=== PATIENT | male | born 1980 | race African-American/Black ===

== ENCOUNTER 2016-07-07 22:29 | Emergency (ER) | payer SELFPAY ==
[~2016-07-07] VITALS: Ht 185.4 cm; Wt 86.2 kg
[2016-07-07 22:36] VITALS: BP 146/98
[2016-07-07] MEDS ORDERED: TRAM-29 PO (23:54)
--- NOTE | 2016-07-07 23:54 | PHYS DOC ---
Past Medical History Past Medical History: Hypertension Past Surgical History: Other Additional Past Surgical Histo: R. knee Alcohol Use: None Drug Use: None Adult General Chief Complaint Chief Complaint: ANKLE PROBLEM HPI HPI Patient is a 35 year old male with history of pain related complaints typically musculoskeletal who presents to the ED today with mild right ankle pain worse on the Achilles tendon pain that began today after he jumped over a fence and a couple steps landing on his foot and hyperflexing the ankle. Review of Systems Review of Systems Constitutional: Denies fever or chills [] Eyes: Denies change in visual acuity, redness, or eye pain [] Musculoskeletal: Right ankle/Achilles pain. Integument: Denies rash or skin lesions [] Neurologic: Denies headache, focal weakness or sensory changes [] Endocrine: Denies polyuria or polydipsia [] Allergies Allergies Allergies Coded Allergies Type Severity Reaction Last Updated Verified No Known Drug Allergies 07/07/16 No Physical Exam Physical Exam Constitutional: Well developed, well nourished, no acute distress, non-toxic appearance. [] HENT: Normocephalic, atraumatic, bilateral external ears normal, oropharynx moist, no oral exudates, nose normal. [] Skin: Warm, dry, no erythema, no rash. [] Back: No tenderness, no CVA tenderness. [] Extremities: Right ankle with no obvious deformity, diffuse tenderness throughout the right ankle worse on the Achilles tendon. Slightly Limited range of motion to the right ankle. Patient is able to extend his ankle but states he is not able to flex it fully. I did flex it for him and he is able to hold it in place in flexed position. Interesting he is able to walk on the affected foot with no issues. +2 right pedal pulse. Cap refill less than 2 seconds the right lower extremity. Sensation intact to the right lower extremity. Neurologic: Alert and oriented X 3, normal motor function, normal sensory function, no focal deficits noted. [] Psychologic: Affect normal, judgement normal, mood normal. [] Current Patient Data Vital Signs Vital Signs Date Time Temp Pulse Resp B/P Pulse Ox O2 Delivery O2 Flow Rate FiO2 07/07/16 22:36 98.4 100 18 100 Room Air 98.4 EKG EKG [] Radiology/Procedures Radiology/Procedures [] Course & Med Decision Making Course & Med Decision Making Pertinent Labs and Imaging studies reviewed. (See chart for details) Patient with history of chronic musculoskeletal pain presents to the ED today with complaints of ankle/Achilles pain after jumping over a fence and a couple steps. Informed patient we don't do MRI or ultrasounds in the ED to rule out Achilles tendon injury. We did an x-ray of the ankle which was negative for any acute findings. X-ray was interpreted by Dr. Ramos. Of course patient is asking for Ultram for discharge. He is well known to this ED for drug seeking specifically for Ultram. I offered him 6 tablets of Ultram and instructed him to follow-up with his own orthopedic doctor which he always claims he has. Follow-up with Ortho tomorrow. Splint was ordered. RN accidentally discharged him before splinting was done. Dragon Disclaimer Dragon Disclaimer This electronic medical record was generated, in whole or in part, using a voice recognition dictation system. Departure Departure Impression: Primary Impression: Right ankle sprain Disposition: HOME, SELF-CARE Condition: STABLE Referrals: NO PCP (PCP) MELISSA RODRIGUEZ MD Follow-up with your orthopedic doctor or the provided orthopedic doctor tomorrow Patient Instructions: Ankle Sprain Additional Instructions: You were seen for ankle/Achilles pain. Please follow-up with your own orthopedic doctor or the provided orthopedic doctor if you worried about Achilles tendon injury. Ice and elevate the extremity. Scripts Tramadol Hcl (Ultram)50 Mg Tablet1 Tab PO Q6HRS #6 TAB Prov:AURELIANO PRIDE APRN 07/07/16 Problem Qualifiers Primary Impression: Right ankle sprain Encounter type: initial encounter Involved ligament of ankle: unspecified ligament Qualified Code: S93.401A - Sprain of unspecified ligament of right ankle, initial encounter AURELIANO PRIDE APRN Jul 07, 2016 23:54
--- NOTE | 2016-07-08 07:52 | RAD ---
EXAM: Right ankle 3 views. HISTORY: Right ankle pain after injury COMPARISON: None. FINDINGS: Three views of the right ankle are obtained. No fractures are identified. Alignment is normal. Joint spaces are maintained. IMPRESSION: 1. No fracture.
== END 2016-07-08 00:06 | disposition home or self-care (01) ==
LOC: ER 22:29
DX: S93.401A Sprain of unspecified ligament of right ankle, initial encounter (principal); I10 Essential (primary) hypertension; X50.9XXA Other and unspecified overexertion or strenuous movements or postures, initial encounter; Y93.39 Activity, other involving climbing, rappelling and jumping off; Y92.89 Other specified places as the place of occurrence of the external cause; Y99.8 Other external cause status
CPT/HCPCS: 73610; 99284

== ENCOUNTER 2016-08-05 21:31 | Emergency (ER) | payer SELFPAY ==
[~2016-08-05] VITALS: Ht 182.9 cm; Wt 93.0 kg
[~2016-08-05 21:31] MED LIST: TRAM-29 PO
[2016-08-05] MEDS ORDERED: METH-37 PO (22:38)
[2016-08-05] MEDS ORDERED: TRAM-29 PO (22:38)
--- NOTE | 2016-08-05 22:38 | PHYS DOC ---
Past Medical History Past Medical History: Hypertension Past Surgical History: Other Additional Past Surgical Histo: R. knee Additional Information: nonsmoker Alcohol Use: None Drug Use: None Adult General Chief Complaint Chief Complaint: LOWER BACK PAIN OR INJURY HPI HPI Patient is a 35 year old male who presents with low back pain after injury while playing football today. He fell backwards and landed on his back. He did not hit his head or lose consciousness. He denies incontinence or saddle anesthesia. He does not have nausea, vomiting, abdominal pain, weakness, or numbness. His PCP is Dr. Ehsan Carr. Review of Systems Review of Systems Constitutional: Denies fever or chills. [] Eyes: Denies change in visual acuity, redness, or eye pain. [] HENT: Denies ear pain, nasal congestion or sore throat. [] Respiratory: Denies cough or shortness of breath. [] Cardiovascular: Denies chest pain, palpitations or edema. [] GI: Denies abdominal pain, nausea, vomiting, bloody stools or diarrhea. [] : Denies dysuria, hematuria or urinary frequency. [] Musculoskeletal: Denies joint pain. Reports low-back pain. Integument: Denies rash or skin lesions. [] Neurologic: Denies headache, focal weakness or sensory changes. Denies loss of consciousness, incontinence, or saddle anesthesia. Endocrine: Denies polyuria or polydipsia. [] Psych: Denies anxiety or depression. [] All systems reviewed and negative unless otherwise stated in the HPI. Allergies Allergies Allergies Coded Allergies Type Severity Reaction Last Updated Verified No Known Drug Allergies 07/07/16 No Physical Exam Physical Exam Constitutional: Well developed, well nourished, no acute distress, non-toxic appearance. [] HENT: Normocephalic, atraumatic, oropharynx moist. [] Eyes: PERRLA, EOMI, conjunctiva normal, no discharge. [] Neck: Normal range of motion, no tenderness, supple, no stridor. [] Cardiovascular: Heart rate regular rhythm, no murmur. [] Lungs & Thorax: Bilateral breath sounds clear to auscultation without wheezes, rales, or rhonchi. [] Abdomen: Bowel sounds normal, soft, no tenderness, no masses, no pulsatile masses. [] Skin: Warm, dry, no erythema, no rash. [] Back: No midline tenderness, no CVA tenderness. There is no midline tenderness, step-off, or deformity of the spine. There is bilateral lumbar paraspinal muscle tenderness. Extremities: No tenderness, ROM intact, no edema. 2+ pedal pulses bilaterally. Light touch sensation intact proximally and distally and equal bilaterally. Neurologic: Alert and oriented X 3, normal motor function, normal sensory function, no focal deficits noted. [] Psychologic: Affect normal, judgement normal, mood normal. [] Current Patient Data Vital Signs Vital Signs Date Time Temp Pulse Resp B/P Pulse Ox O2 Delivery O2 Flow Rate FiO2 08/05/16 21:41 98.6 104 20 100 Room Air 98.6 EKG EKG [] Radiology/Procedures Radiology/Procedures [] Course & Med Decision Making Course & Med Decision Making Pertinent Labs and Imaging studies reviewed. (See chart for details) [] Dragon Disclaimer Dragon Disclaimer This electronic medical record was generated, in whole or in part, using a voice recognition dictation system. Departure Departure Impression: Primary Impression: Low back pain Disposition: HOME, SELF-CARE Condition: STABLE Referrals: NO PCP (PCP) Patient Instructions: Back Pain, Adult, [id number] Additional Instructions: Please take the prescribed medications as directed. Do not drive or operate heavy machinery while taking these medications. In order to help with your back pain, apply heat, practice gentle stretching, and light massage. Avoid heavy lifting or bending, which will further strain your back. Please follow-up with your doctor within the next 2-3 days, sooner if concerns. Return to the emergency department if you have any new or concerning symptoms. Scripts Tramadol Hcl (Ultram)50 Mg [id number] Mg PO Q6H PRN PAIN #10 TAB Prov:RACHEL ROBERTSON 08/05/16 Methocarbamol (Robaxin)500 Mg [id number] Mg PO QID #20 TAB Prov:RACHEL ROBERTSON 08/05/16 Problem Qualifiers Primary Impression: Low back pain Chronicity: acute Back pain laterality: bilateral Sciatica presence: without sciatica Qualified Code: M54.5 - Low back pain RACHEL ROBERTSON Aug 05, 2016 22:38
[2016-08-05 22:45] VITALS: BP 143/94
== END 2016-08-05 22:45 | disposition home or self-care (01) ==
LOC: ER 21:31
DX: I10 Essential (primary) hypertension (principal); M54.5 Low back pain; W19.XXXA Unspecified fall, initial encounter; Y93.61 Activity, american tackle football; Y92.89 Other specified places as the place of occurrence of the external cause; Y99.8 Other external cause status
CPT/HCPCS: 99283

== ENCOUNTER 2016-12-08 14:49 | Emergency (ER) | payer SELFPAY ==
[~2016-12-08] VITALS: Ht 182.9 cm; Wt 86.2 kg
[~2016-12-08 14:49] MED LIST changes: +METH-37 PO; -TRAM-29 PO; +TRAM-48 PO
[2016-12-08 14:50] VITALS: BP 158/101
--- NOTE | 2016-12-08 15:15 | PHYS DOC ---
Past Medical History Past Medical History: Hypertension Past Surgical History: Other Additional Past Surgical Histo: R SHOULDER CYST REMOVED, L KNEE SCOPE, JAW SX Alcohol Use: None Drug Use: None Adult General Chief Complaint Chief Complaint: HEADACHE HPI HPI Patient is a 36 year old gentleman who presents here today secondary to wanting a work release to return to work today. Patient reports yesterday while at work he had 2 episodes of nausea and vomiting. Work force him to leave and come to the hospital. Patient reports the hospital his car broke down and was unable to come to the ER however they will not let him go back to work without no. Patient yesterday reports all symptoms are completely resolved. Patient denies any fevers shakes chills nausea vomiting diarrhea chest pain short of breath cough cold or runny nose. Patient reports she is completely asymptomatic and wants to go back to work today. Patient's physical exam is unremarkable. Patient denies any history of hypertension diabetes liver longer kidney problems. Assessment and plan 36-year-old gentleman who presents here today in good health. Patient is requesting a release note to go back to work.. Patient be discharged home in stable condition with a work release note. Allergies Allergies Allergies Coded Allergies Type Severity Reaction Last Updated Verified codeine Allergy Intermediate 12/08/16 Yes Physical Exam Physical Exam Constitutional: Denies fever or chills [] Eyes: Denies change in visual acuity, redness, or eye pain [] HENT: Denies nasal congestion or sore throat [] All other review systems are negative except as documented in the history of present illness portion. Constitutional: Well developed, well nourished, no acute distress, non-toxic appearance. [] HENT: Normocephalic, atraumatic, bilateral external ears normal, oropharynx moist, no oral exudates, nose normal. [] Eyes: no discharge. [] Neck: Normal range of motion, no tenderness, supple, no stridor. [] Cardiovascular:Heart rate regular rhythm, Lungs & Thorax: Bilateral breath sounds clear to auscultation [] Abdomen: Bowel sounds normal, soft, no tenderness, no masses, no pulsatile masses. [] Skin: Warm, dry, no erythema, no rash. [] Back: No tenderness, no CVA tenderness. [] Extremities: No tenderness, no cyanosis, no clubbing, ROM intact, no edema. [] Neurologic: Alert and oriented X 3, normal motor function, normal sensory function, no focal deficits noted. [] Psychologic: Affect normal, judgement normal, mood normal. [] Current Patient Data Vital Signs Vital Signs Date Time Temp Pulse Resp B/P (MAP) Pulse Ox O2 Delivery O2 Flow Rate FiO2 12/08/16 14:50 98.4 116 16 158/101 (120) 95 Room Air 98.4 EKG EKG [] Radiology/Procedures Radiology/Procedures [] Course & Med Decision Making Course & Med Decision Making Pertinent Labs and Imaging studies reviewed. (See chart for details) [] Dragon Disclaimer Dragon Disclaimer This electronic medical record was generated, in whole or in part, using a voice recognition dictation system. Departure Departure Impression: Primary Impression: Nausea & vomiting Additional Impression: Dehydration Disposition: 01 HOME, SELF-CARE Condition: LEFT WITHOUT BEING SEEN Referrals: UNKNOWN PCP NAME (PCP) Patient Instructions: Nausea and Vomiting, [id number] Additional Instructions: May return to work today Problem Qualifiers HIRAL GREEN MD Dec 08, 2016 15:15
== END 2016-12-08 15:26 | disposition home or self-care (01) ==
LOC: ER 14:49
DX: E86.0 Dehydration (principal); I10 Essential (primary) hypertension; Z88.6 Allergy status to analgesic agent
CPT/HCPCS: 99281

== ENCOUNTER 2016-12-16 22:04 | Emergency (ER) | payer SELFPAY ==
[~2016-12-16] VITALS: Ht 182.9 cm; Wt 86.2 kg
--- NOTE | 2016-12-16 22:26 | PHYS DOC ---
Past Medical History Past Medical History: Hypertension Past Surgical History: Other Additional Past Surgical Histo: R SHOULDER CYST REMOVED, L KNEE SCOPE, JAW SX Alcohol Use: None Drug Use: None Adult General Chief Complaint Chief Complaint: MULTIPLE COMPLAINTS HPI HPI Patient is a 36 year old M who presents with generalized weakness and headache for the past week. Patient states he was seen in emergency room last week for some her symptoms and workup was negative and discharged home. Patient has no family doctor follow up with. Patient returns tonight because he's been laying in bed all day extremely weak and complains of a headache. The headaches been present for the past 4 days. Patient pointed nausea and vomiting and diarrhea. Patient denies any chest pain or shortness of breath. Patient denies any fevers. Patient has no other symptoms. Review of Systems Review of Systems GEN: weakness HEENT: Denies blurred vision, sore throat CV: Denies chest pain RESP: Denies shortness of air, cough GI: Denies n/v/d NEURO: Headache MSK: Denies weakness, joint pain/swelling Current Medications Current Medications Current Medications Medications (Trade) Dose Ordered Sig/Elayne Start Time Stop Time Status Last Admin Dose Admin Clonidine HCl (Catapres) 0.2 mg 1X ONCE 12/17/16 00:15 12/17/16 00:16 DC 12/17/16 00:18 0.2 MG Ketorolac Tromethamine (Toradol) 30 mg 1X ONCE 12/17/16 00:15 12/17/16 00:16 DC 12/17/16 00:18 30 MG Metoclopramide HCl (Reglan) 10 mg 1X ONCE 12/17/16 00:15 12/17/16 00:16 DC 12/17/16 00:18 10 MG Allergies Allergies Allergies Coded Allergies Type Severity Reaction Last Updated Verified codeine Allergy Intermediate 12/08/16 Yes Physical Exam Physical Exam GEN.: No apparent distress. Alert and oriented. HEENT: Head is normocephalic, atraumatic NECK: Supple. LUNGS: CTAB. HEART: RRR, S1, S2 present. Peripheral pulses intact ABDOMEN: Soft, nontender. Positive bowel sounds. EXTREMITIES: Without any cyanosis. NEUROLOGIC: Normal speech, normal tone PSYCHIATRIC: Normal affect, normal mood. SKIN: No ulcerations Current Patient Data Vital Signs Vital Signs Date Time Temp Pulse Resp B/P (MAP) Pulse Ox O2 Delivery O2 Flow Rate FiO2 12/17/16 00:18 65 184/117 12/16/16 22:09 98.2 18 100 Room Air 98.2 Lab Values Laboratory Tests Test 12/16/16 22:10 12/16/16 22:55 White Blood Count 5.3 x10^3/uL (4.0-11.0) Red Blood Count 4.65 x10^6/uL (4.30-5.70) Hemoglobin 13.6 g/dL (13.0-17.5) Hematocrit 41.5 % (39.0-53.0) Mean Corpuscular Volume 89 fL (79-100) Mean Corpuscular Hemoglobin 29 pg (25-35) Mean Corpuscular Hemoglobin Concent 33 g/dL (31-37) Red Cell Distribution Width 14.3 % (11.5-14.5) Platelet Count 237 x10^3/uL (140-400) Neutrophils (%) (Auto) 56 % (31-73) Lymphocytes (%) (Auto) 35 % (24-48) Monocytes (%) (Auto) 8 % (0-9) Eosinophils (%) (Auto) 0 % (0-3) Basophils (%) (Auto) 1 % (0-3) Neutrophils # (Auto) 3.0 x10^3uL (1.8-7.7) Lymphocytes # (Auto) 1.8 x10^3/uL (1.0-4.8) Monocytes # (Auto) 0.4 x10^3/uL (0.0-1.1) Eosinophils # (Auto) 0.0 x10^3/uL (0.0-0.7) Basophils # (Auto) 0.1 x10^3/uL (0.0-0.2) Sodium Level 143 mmol/L (136-145) Potassium Level 3.4 mmol/L (3.5-5.1) L Chloride Level 106 mmol/L (98-107) Carbon Dioxide Level 32 mmol/L (21-32) Anion Gap 5 (6-14) L Blood Urea Nitrogen 11 mg/dL (8-26) Creatinine 1.6 mg/dL (0.7-1.3) H Estimated GFR (Cockcroft-Gault) 59.8 BUN/Creatinine Ratio 7 (6-20) Glucose Level 130 mg/dL (70-99) H Calcium Level 9.6 mg/dL (8.5-10.1) Total Bilirubin 0.3 mg/dL (0.2-1.0) Aspartate Amino Transferase (AST) 57 U/L (15-37) H Alanine Aminotransferase (ALT) 29 U/L (16-63) Alkaline Phosphatase 89 U/L (46-116) Troponin I Quantitative < 0.017 ng/mL (0.000-0.055) Total Protein 8.1 g/dL (6.4-8.2) Albumin 4.2 g/dL (3.4-5.0) Albumin/Globulin Ratio 1.1 (1.0-1.7) Urine Collection Type Unknown Urine Color Olga Urine Clarity Turbid Urine pH 5.5 Urine Specific Bethesda >=1.030 Urine Protein 30 mg/dL (NEG-TRACE) Urine Glucose (UA) Negative mg/dL (NEG) Urine Ketones (Stick) Trace mg/dL (NEG) Urine Blood Negative (NEG) Urine Nitrite Negative (NEG) Urine Bilirubin Small (NEG) Urine Urobilinogen Dipstick 1.0 mg/dL (0.2 mg/dL) Urine Leukocyte Esterase Negative (NEG) Urine RBC Occ /HPF (0-2) Urine WBC Occ /HPF (0-4) Urine Squamous Epithelial Cells Occ /LPF Urine Bacteria 0 /HPF (0-FEW) Urine Hyaline Casts Moderate /HPF Urine Mucus Mod /LPF Laboratory Tests 12/16/16 22:10 Laboratory Tests 12/16/16 22:10 EKG EKG 2216: Normal sinus rhythm rate of 88 no STEMI [] Radiology/Procedures Radiology/Procedures Chest x-ray NAD CT scan of the head NAD [] Course & Med Decision Making Course & Med Decision Making Pertinent Labs and Imaging studies reviewed. (See chart for details) ED course: Patient was seen and examined emergency room, CBC, CMP, troponin, UA, chest x- ray, EKG, CT scan of the head 2355: Updated patient on lab results and CT results patient's blood pressure is 189/112 and patient is complaining of a mild headache. Patient states he takes lisinopril. We'll provide the patient with some Catapres, Toradol, Reglan and reevaluate. 0036: Patient's repeat blood pressure is 162/106 and a headache is better after receiving the medication. Patient is ready be discharged. MDM: After reviewing the chart, CC/HPI/PMH, physical exam, [lab results], [ radiological results], I do not believe the patient has emergent medical condition warranting further workup and/or admission at this time. Patient has a symptomatically hypertension and recommend he follow up his PCP for better blood pressure management. Patient is stable for discharge. Additional verbal discharge instructions were provided to the patient and that if symptoms get worse or any new symptoms arise that are worrisome to the patient he is to return to the emergency room immediately [] Dragon Disclaimer Dragon Disclaimer This electronic medical record was generated, in whole or in part, using a voice recognition dictation system. Departure Departure Impression: Primary Impression: Fatigue Additional Impression: Hypertension Disposition: 01 HOME, SELF-CARE Condition: IMPROVED Referrals: NO PCP (PCP) Patient Instructions: Hypertension, Weakness Additional Instructions: Please follow up with her family doctor for better control of your blood pressure and further workup here weakness in next 1-2 days Problem Qualifiers Primary Impression: Fatigue Fatigue type: unspecified Qualified Codes: R53.83 - Other fatigue Additional Impression: Hypertension Hypertension type: unspecified Qualified Codes: I10 - Essential (primary) hypertension CELESTINO KAUR DO Dec 16, 2016 22:26
[2016-12-16 22:30] LABS: BASO # 0.1 x10^3/uL (0.0-0.2); BASO % 1 % (0-3); EOS % 0 % (0-3); HEMATOCRIT 41.5 % (39.0-53.0); HEMOGLOBIN 13.6 g/dL (13.0-17.5); LYMPH # 1.8 x10^3/uL (1.0-4.8); LYMPH % 35 % (24-48); MEAN CORPUSCULAR HEMOGLOBIN 29 pg (25-35); MEAN CORPUSCULAR HGB CONC 33 g/dL (31-37); MEAN CORPUSCULAR VOLUME 89 fL (79-100); MONO % 8 % (0-9); NEUT % 56 % (31-73); PLATELET COUNT 237 x10^3/uL (140-400); RED BLOOD COUNT 4.65 x10^6/uL (4.30-5.70); RED CELL DISTRIBUTION WIDTH 14.3 % (11.5-14.5); WHITE BLOOD COUNT 5.3 x10^3/uL (4.0-11.0)
[2016-12-16 22:42] LABS: CALCIUM 9.6 mg/dL (8.5-10.1); CREATININE 1.6 mg/dL (0.7-1.3); GFR 59.8; POTASSIUM 3.4 mmol/L (3.5-5.1)
[2016-12-16 22:48] LABS: ALBUMIN 4.2 g/dL (3.4-5.0); ALBUMIN/GLOBULIN RATIO 1.1 (1.0-1.7); TOTAL BILIRUBIN 0.3 mg/dL (0.2-1.0); TOTAL PROTEIN 8.1 g/dL (6.4-8.2)
--- NOTE | 2016-12-16 22:59 | RAD ---
CT HEAD WO CONTRAST History: Headache, hypertension Comparison: None. Technique: Noncontrast [address] images were acquired from the skull base to the vertex. Exposure: One or more of the following individualized dose reduction techniques were utilized for this examination: 1. Automated exposure control 2. Adjustment of the mA and/or kV according to patient size 3. Use of iterative reconstruction technique. Findings: No acute extra-axial or parenchymal hemorrhage is identified. There is no significant intra-axial mass effect, midline shift, or extra-axial fluid collection. The londono-white differentiation of the major vascular territories is preserved. The ventricles, sulci, and cisterns are within normal limits in size and configuration. The mastoid air cells and the visualized paranasal sinuses are aerated. No acute calvarial abnormality is identified. Impression: 1. No acute intracranial abnormality is identified. Electronically signed by: Samson Patel MD (12/16/2016 10:56 PM) [facility]
[2016-12-16 23:04] LABS: BILIRUBIN,URINE SMALL (NEG); GLUCOSE,URINE NEGATIVE (NEG); NITRITE,URINE NEGATIVE (NEG); PH,URINE 5.5; PROTEIN,URINE 30 mg/dL (NEG-TRACE)
[2016-12-16 23:12] LABS: BACTERIA,URINE 0 /HPF (0-FEW); RBC,URINE OCC /HPF (0-2); SQUAMOUS EPITHELIAL CELL,UR OCC /LPF; WBC,URINE OCC /HPF (0-4)
[2016-12-17] MEDS ORDERED: METOCLOPRAMIDE HCL 10 MG/2 ML VIAL. IV ONE (00:15)
[2016-12-17] MEDS ORDERED: KETOROLAC TROMETHAMINE 30 MG/ML INJ. IV ONE (00:15)
[2016-12-17] MEDS ORDERED: cloNIDine HCL 0.1 MG TABLET PO ONE (00:15)
[2016-12-17 00:34] VITALS: BP 162/106
--- NOTE | 2016-12-17 06:08 | EKG ---
[facility] [address] [place] [address] Test Date: 2016-12-16 Test Time: 22:12:52 Pat Name: PB MARCIAL Department: Room: Gender: M Rn Clinical Coordinator: : 1980 Requested By: CELESTINO KAUR Order Number: [id number] Reading MD: Bacilio Brooks Measurements Intervals Venus Rate: 88 P: 4 OR: 128 QRS: 26 QRSD: 94 T: 21 QT: 346 QTc: 422 Interpretive Statements SINUS RHYTHM NORMAL ECG RI6.01 Unconfirmed report No previous ECG available for comparison Electronically Signed On 12-17-2016 16:49:47 CDT by Bacilio Brooks
--- NOTE | 2016-12-17 09:58 | RAD ---
AP chest radiograph 12/16/2016 Clinical indication: Weakness. Comparison: None. Findings: Cardiac and mediastinal silhouettes are within normal limits. No pleural effusion, pneumothorax or focal consolidation. There are right hilar calcified granulomas. Impression: No acute cardiopulmonary abnormality.
== END 2016-12-17 00:45 | disposition home or self-care (01) ==
LOC: ER 22:04
DX: R53.83 Other fatigue (principal); I10 Essential (primary) hypertension; R53.1 Weakness; R11.2 Nausea with vomiting, unspecified; R19.7 Diarrhea, unspecified; Z88.5 Allergy status to narcotic agent
CPT/HCPCS: 36415; 70450; 71010; 80053; 81001; 84484; 85027; 93005; 96374; 96375; 99285; J1885; J2765